=== PATIENT | female | born 1965 | race Caucasian/White ===

== ENCOUNTER → 2016-10-21 | Outpatient (CLI) | payer BC ==
--- NOTE | 2016-10-21 09:17 | REPMRS ---
Patient History Patient has history of cancer in the left breast at age 39, had previous chest radiation therapy at age 39, and had previous chemotherapy. Family history of prostate cancer in maternal grandfather at age 50 or over, unknown cancer in mother at age 69, and unknown cancer in maternal aunt at age 60. Chemotherapy. Radiation therapy of the left breast. Took hormonal contraceptives for 5 years. Digital Mammo Screening Bilat: October 21, 2016 - Exam #: [id number] Bilateral CC and MLO view(s) were taken. Technologist: Kim Casillas, Technologist Prior study comparison: October 20, 2015, bilateral digital mammo screening bilat performed at [facility]. October 18, 2014, digital mammo diagnostic bilateral performed at [facility]. November 05, 2013, bilateral bilat screen digital mammo, performed at [facility] ([facility]). FINDINGS: There are scattered fibroglandular densities. There has been no change in the appearance of the mammogram from the prior studies. There are stable post treatment changes in the left breast. There are needle biopsy marker clips in each breast as before. There is a mild amount of scattered fibroglandular density which is fairly symmetric. There is no interval development of dominant mass, architectural distortion, or clustered microcalcification suggestive of malignancy. ASSESSMENT: BI-RADS/ACR category 1 mammogram. Negative. Recommendation Routine screening mammogram in 1 year (for women over age 40). This mammogram was interpreted with the aid of an FDA-approved computer-aided dectection system. Electronically Signed By: Hayden Malin MD 10/21/16 0996
== END ==
LOC: M RAD 08:26
PROVIDERS: ATTEND Internal Medicine Medical Oncology
DX: Z08 Encounter for follow-up examination after completed treatment for malignant neoplasm (principal); Z12.31 Encounter for screening mammogram for malignant neoplasm of breast; Z85.3 Personal history of malignant neoplasm of breast

== ENCOUNTER → 2017-01-08 | Outpatient (CLI) | payer BC ==
--- NOTE | 2017-01-08 15:32 | REP ---
ULTRASOUND RIGHT BREAST: Clinical history: Left breast cancer with radiation and chemotherapy. Right breast swelling and tenderness diffusely, primarily 3-o'clock to 6-o'clock according to the patient. Correlation made with mammogram of 10/21/2016 bilaterally which was negative. Real-time sonographic evaluation of the right breast performed between 3-o'clock and 6-o'clock. No discrete cystic or solid nodule is seen. Dense fibroglandular tissue is seen. IMPRESSION: ACR 2 benign ultrasound right breast between 3-o'clock and 6-o'clock in the area of tenderness and swelling. Clinical correlation and followup recommended. A negative ultrasound should not deter biopsy if there is a clinically suspicious palpable mass present. Given the patient's history of breast cancer on the left I would recommend MRI of the breast to rule out an occult lesion. Signed by Kwame Castillo MD 01/09/2017 04:46 P
== END ==
LOC: M RAD 12:56
PROVIDERS: ATTEND Internal Medicine Medical Oncology
DX: N64.4 Mastodynia (principal); R22.2 Localized swelling, mass and lump, trunk; Z85.3 Personal history of malignant neoplasm of breast

== ENCOUNTER → 2017-03-11 | Outpatient (REF) | payer BC | LOC: M LAB REF 13:11 | PROVIDERS: ATTEND Internal Medicine Medical Oncology | DX: C50.919 Malignant neoplasm of unspecified site of unspecified female breast (principal) ==

== ENCOUNTER → 2017-04-17 | Outpatient (CLI) | payer BC ==
--- NOTE | 2017-04-18 08:11 | REP ---
Clinical: Chronic pain. Technique: AP, lateral, bilateral oblique views of the left foot. Findings: Mild age-related changes are appreciated. No acute or obvious healed fracture/dislocation. No significant, overt arthritic changes are identified. No significant periarticular or soft tissue calcifications. Impression: Relatively normal, age-appropriate left foot radiographs. Signed by Jaun Murillo MD 04/18/2017 03:13 A
== END ==
LOC: M WUC 17:02
PROVIDERS: ATTEND Physician Assistant
DX: M25.572 Pain in left ankle and joints of left foot (principal)

== ENCOUNTER → 2017-05-30 | Outpatient (CLI) | payer BC ==
--- NOTE | 2017-05-30 14:20 | REP ---
THREE-PHASE BONE SCANNING OF THE FEET AND ANKLES: History: Left foot fourth metatarsal stress fracture. Comparison radiographs May 12, 2017. Technique: 22.0 mCi technetium 99m MDP is injected and standard three-phase imaging was acquired. Scintigraphic findings: The anterior and posterior flow images demonstrate relative hyperemia of the left foot mild in degree. Blood pool images demonstrate an area of increased uptake in the left mid foot compared to the right. Delayed scan images demonstrate intensely increased uptake in the left mid foot at the level of the proximal third metatarsal or third metatarsal tarsal joint. No other focus of increased uptake is seen. Impression: Positive bone scan. Area of increased uptake on blood pool and delayed images in the left mid foot in the region of the third MTP joint or proximal metatarsal. This is compatible with stress fracture. Signed by Balwinder Malin MD 05/30/2017 03:03 P
== END ==
LOC: M RAD 09:00
PROVIDERS: ATTEND Podiatrist
DX: M84.375A Stress fracture, left foot, initial encounter for fracture (principal); X58.XXXA Exposure to other specified factors, initial encounter; Y92.89 Other specified places as the place of occurrence of the external cause; Y93.89 Activity, other specified; Y99.8 Other external cause status
CPT/HCPCS: 78315; A9503

== ENCOUNTER → 2017-10-26 | Outpatient (CLI) | payer BC | LOC: M LRY 10:53 | DX: M25.511 Pain in right shoulder (principal) | CPT/HCPCS: 73030 ==

== ENCOUNTER → 2017-11-19 | Outpatient (CLI) | payer BC ==
[~2017-11-19] MED LIST: GASTROGRAFIN SOLUTION 30ML (Q9963) As Ordered; ISOVUE-370 76% 100ML VIAL (Q9967) As Ordered
== END ==
LOC: M RAD 10:24
DX: K76.9 Liver disease, unspecified (principal); R10.31 Right lower quadrant pain
CPT/HCPCS: Q9963

== ENCOUNTER → 2017-11-19 | Outpatient (REF) | payer BC | LOC: M LAB REF 11:13 | DX: R10.31 Right lower quadrant pain (principal) | CPT/HCPCS: 87086 ==

== ENCOUNTER → 2017-11-19 | Outpatient (CLI) | payer BC ==
[2017-11-19 11:23] LABS: BASO # 0.1 10^3/uL (0.0-0.2); BASO % 1.1 % (0.0-1.0); EOS # 0.1 10^3/uL (0.0-0.50); EOS % 1.2 % (0.0-3.0); HEMATOCRIT 41.1 % (36.0-47.0); HEMOGLOBIN 13.2 g/dl (12.0-16.0); IMMATURE GRANULOCYTE % 0.9 % (0-3.0); LYMPH # 2.2 10^3/uL (1.5-4.5); LYMPH % 26.7 % (24.0-44.0); MEAN CORPUSCULAR HEMOGLOBIN 28.8 pg (27.0-33.0); MEAN CORPUSCULAR HGB CONC 32.1 g/dl (32.0-36.5); MEAN CORPUSCULAR VOLUME 89.5 fl (80.0-96.0); MONO # 0.5 10^3/uL (0.0-0.8); MONO % 6.6 % (0.0-5.0); NEUTROPHILS # 5.1 10^3/uL (1.8-7.7); NEUTROPHILS % 63.5 % (36.0-66.0); PLATELET COUNT, AUTOMATED 265 10^3/uL (150-450); RED BLOOD COUNT 4.59 10^6/uL (4.00-5.40)
[2017-11-19 11:40] LABS: ALBUMIN 4.1 GM/DL (3.2-5.2); ALBUMIN/GLOBULIN RATIO 1.17 (1.00-1.93); ALKALINE PHOSPHATASE 73 U/L (45-117); ALT/SGPT 38 U/L (12-78); ANION GAP 7 MEQ/L (8-16); AST/SGOT 21 U/L (7-37); BILIRUBIN,TOTAL 0.4 MG/DL (0.2-1.0); BLOOD UREA NITROGEN 11 MG/DL (7-18); CALCIUM LEVEL 9.8 MG/DL (8.5-10.1); CARBON DIOXIDE LEVEL 29 MEQ/L (21-32); CHLORIDE LEVEL 106 MEQ/L (98-107); CREATININE FOR GFR 0.56 MG/DL (0.55-1.30); GLOMERULAR FILTRATION RATE > 60.0 (>51); GLUCOSE, FASTING 83 MG/DL (70-100); POTASSIUM SERUM 4.2 MEQ/L (3.5-5.1); SODIUM LEVEL 142 MEQ/L (136-145); TOTAL PROTEIN 7.6 GM/DL (6.4-8.2)
== END ==
LOC: M WUC 09:42
DX: R10.31 Right lower quadrant pain (principal)
CPT/HCPCS: 80053

== ENCOUNTER → 2018-03-17 | Outpatient (CLI) | payer OTHER, BC ==
[~2018-03-17] MED LIST changes: -GASTROGRAFIN SOLUTION 30ML (Q9963) As Ordered; -ISOVUE-370 76% 100ML VIAL (Q9967) As Ordered; +PROHANCE 279.3MG/ML 15ML VIAL (A9576) As Ordered
== END ==
LOC: M RAD 12:05
DX: C34.90 Malignant neoplasm of unspecified part of unspecified bronchus or lung (principal)
CPT/HCPCS: A9576

== ENCOUNTER → 2018-10-01 | Outpatient (CLI) | payer OTHER ==
--- NOTE | 2018-10-01 15:44 | REP ---
Whole body radionuclide bone scan: History: Breast carcinoma. Hip pain. Question metastasis. Comparison study: October 11, 2014. Technique: 21.5 mCi technetium of 99m MDP is injected and standard whole body bone scan imaging is acquired. Findings: There is a normal distribution of skeletal tracer with uptake in bilateral kidneys and in the urinary bladder. There is arthritic uptake in the left mid foot and laterally in the left knee. There is a focus of slightly increased uptake in the left greater trochanter. This appears to be new, but may well be due to tendonitis or bursitis changes. No other abnormal focus of increased uptake is seen to suggest skeletal metastatic disease. Impression: New focus of increased uptake in the tip of the greater trochanter on the left side. This is nonspecific and may reflect tendonitis or bursitis. Otherwise negative bone scan. Electronically Signed by Balwinder Malin MD 10/01/2018 06:16 P
--- NOTE | 2018-10-01 16:32 | MEDONCTEEN ---
Date/Time of Encounter Date of Encounter: Oct 01, 2018 Time of Encounter: 16:29 Telephone Encounter Bone scan showed uptake in greater trochanter deemed possible bursitis/tendon itis. I suggested an Xray for this. FORREST GALE MD Oct 01, 2018 16:32
== END ==
LOC: M RAD 10:44
PROVIDERS: ATTEND Internal Medicine Medical Oncology
DX: M25.552 Pain in left hip (principal); Z85.3 Personal history of malignant neoplasm of breast
CPT/HCPCS: 78306; A9503

== ENCOUNTER → 2018-10-07 | Outpatient (CLI) | payer OTHER ==
--- NOTE | 2018-10-07 21:25 | REP ---
Clinical: Left hip and knee pain. Technique: AP and frog lateral views of the left femur. Findings: Femur is intact without acute fracture or dislocation. Hip and knee joints appear normal. Surrounding soft tissues are unremarkable. Impression: Normal left femur radiographs. Electronically Signed by Jaun Murillo MD 10/07/2018 09:15 P
--- NOTE | 2018-10-07 21:31 | REP ---
Clinical: Left hip pain. Technique: Neutral and frog lateral views of the left hip. Findings: Mild age-related changes are appreciated including subtle increase sclerosis to the acetabular roof. No obvious osteophytosis, significant joint space narrowing, or periarticular calcifications/loose bodies noted. Proximal femur appears normal and intact. Impression: Mild age-related changes. Electronically Signed by Jaun Murillo MD 10/07/2018 09:21 P
--- NOTE | 2018-10-07 21:33 | REP ---
Clinical: Right knee pain Technique: AP, lateral, bilateral oblique and sunrise views. Findings: The osseous structures and joint spaces are intact and normal. There is no evidence for acute fracture or dislocation. No joint effusion is appreciated. Surrounding soft tissues are unremarkable. No subcutaneous emphysema or radiodense foreign body. Impression: Age-appropriate right knee examination. Electronically Signed by Jaun Murillo MD 10/07/2018 09:24 P
== END ==
LOC: M RAD 12:12
PROVIDERS: ATTEND Internal Medicine Medical Oncology
DX: M25.552 Pain in left hip (principal); M25.561 Pain in right knee

== ENCOUNTER → 2019-07-20 | Outpatient (CLI) | payer OTHER ==
--- NOTE | 2019-07-20 15:57 | REPMRS ---
Patient History The patient states she had a clinical breast exam in 2018.Family history of unknown cancer at age 60 in maternal aunt, prostate cancer at age 50 or over in maternal grandfather, unknown cancer at age 69 in mother. Chemotherapy. Radiation therapy of the left breast. Took hormonal contraceptives for 5 years. Digital Mammo Screening Bilat: July 20, 2019 - Exam #: [id number] Bilateral CC and MLO view(s) were taken. Technologist: Tamia Garcia, Technologist Prior study comparison: March 17, 2018, bilateral digital mammo screening bilat performed at [facility]. October 21, 2016, bilateral digital mammo screening bilat performed at [facility]. October 20, 2015, bilateral digital mammo screening bilat performed at [facility]. FINDINGS: There are scattered fibroglandular densities. There are stable post-treatment changes again noted on the left. A needle biopsy marker clip is again noted in the left breast. There is also a needle biopsy marker clip again noted in the right breast. There has been no change in the appearance of the mammogram from the prior studies. There is a mild amount of scattered fibroglandular density which is fairly symmetric. There is no interval development of dominant mass, architectural distortion, or grouped microcalcification suggestive of malignancy. 3-D tomosynthesis shows no additional findings. Assessment: BI-RADS/ACR category 2 mammogram. Benign Findings. Recommendation Routine screening mammogram of both breasts in 1 year (for women over age 40). This mammogram was interpreted with the aid of an FDA-approved computer-aided dectection system. Electronically Signed By: Hayden Malin MD 07/20/19 0313
== END ==
LOC: M RAD 15:18
PROVIDERS: ATTEND Nurse Practitioner Family
DX: Z12.31 Encounter for screening mammogram for malignant neoplasm of breast (principal)

== ENCOUNTER → 2020-07-19 | Outpatient (CLI) | payer OTHER ==
--- NOTE | 2020-07-19 10:47 | REP ---
INDICATION: ABD BLOATING, ASCITES. COMPARISON: Comparison CT study November 19, 2017.. TECHNIQUE: Complete abdominal a scanning, transabdominal technique. FINDINGS: Scanning through the right upper quadrant of the abdomen demonstrates a normal sized and walled gallbladder without evidence of stone or polyp. Common bile duct is normal measuring 0.5 cm in greatest diameter. No focal liver lesion is seen. The prior CT study showed a hypervascular area 2 cm in diameter in the right lobe of the liver. No mass lesion is visible by ultrasound today. No pancreatic abnormality is observed. There is no evidence of ascites. Scanning in the left upper quadrant demonstrates a normal size homogeneous spleen measuring 9.5 centimeters in greatest diameter. Renal cortical echogenicity pattern is normal. There is no evidence hydronephrosis, mass or cyst. Right renal dimensions are 11.3 x 6.0 x 5.0 centimeters. The left kidney measures 12.9 x 5.6 x 5.3 centimeters. Normal caliber aorta is encountered. IMPRESSION: Negative complete abdominal sonography. No liver mass seen by ultrasound. <Electronically signed by Hayden Malin > 07/19/20 1041
== END ==
LOC: M RAD 07:54
PROVIDERS: ATTEND Internal Medicine Medical Oncology
DX: R14.0 Abdominal distension (gaseous) (principal); R18.8 Other ascites; Z85.3 Personal history of malignant neoplasm of breast

== ENCOUNTER → 2020-07-26 | Outpatient (CLI) | payer OTHER ==
--- NOTE | 2020-07-26 11:28 | REPMRS ---
Patient History The patient states she had a clinical breast exam in 08/04 Patient is postmenopausal, has history of cancer in the left breast at age 39, had previous chest radiation therapy at age 39, has history of cancer in the left breast at age 38, and had previous chemotherapy. Family history of unknown cancer at age 60 in maternal aunt, prostate cancer at age 50 or over in maternal grandfather, unknown cancer at age 69 in mother. Malignant excisional biopsy of the left breast, 2004. Chemotherapy. Radiation therapy of the left breast. Took hormonal contraceptives for 5 years. Digital Woman Screen Mammo: July 26, 2020 - Exam #: [id number] Bilateral CC and MLO view(s) were taken. Technologist: Mara Serna, Technologist Prior study comparison: July 20, 2019, bilateral digital mammo screening bilat, performed at [facility]. March 17, 2018, bilateral digital mammo screening bilat, performed at [facility]. October 21, 2016, bilateral digital mammo screening bilat, performed at [facility]. FINDINGS: There are scattered fibroglandular densities. The Volpara volumetric breast density category is:B. There is a needle biopsy marker clip in each breast. There are stable post treatment changes in the left breast. There has been no change in the appearance of the mammogram from the prior studies. There is a mild amount of scattered fibroglandular density which is fairly symmetric. There is no interval development of dominant mass, architectural distortion, or grouped microcalcification suggestive of malignancy. 3-D tomosynthesis shows no additional findings. Assessment: BI-RADS/ACR category 2 mammogram. Benign Findings. Recommendation Routine screening mammogram of both breasts in 1 year (for women over age 40). This mammogram was interpreted with the aid of an FDA-approved computer-aided dectection system. Electronically Signed By: Hayden Malin MD 07/26/20 1384
== END ==
LOC: M WHC 08:26
PROVIDERS: ATTEND Internal Medicine Medical Oncology
DX: Z12.31 Encounter for screening mammogram for malignant neoplasm of breast (principal)

== ENCOUNTER → 2021-09-03 | Outpatient (CLI) | payer OTHER | LOC: M WHC 08:56 | PROVIDERS: ATTEND Internal Medicine Medical Oncology | DX: Z12.31 Encounter for screening mammogram for malignant neoplasm of breast (principal) ==

== ENCOUNTER → 2022-09-05 | Outpatient (CLI) | payer OTHER | LOC: M WHC 13:13 | PROVIDERS: ATTEND Internal Medicine Medical Oncology | DX: Z12.31 Encounter for screening mammogram for malignant neoplasm of breast (principal) ==

== ENCOUNTER → 2023-04-25 | Outpatient (CLI) | payer OTHER ==
[2023-04-25 10:11] LABS: BASO # 0.1 10^3/uL (0.0-0.2); EOS # 0.2 10^3/uL (0.0-0.5); EOS % 2.6 % (0.0-3.0); HEMATOCRIT 42.5 % (36.0-47.0); HEMOGLOBIN 13.4 g/dl (12.0-15.5); LYMPH # 2.8 10^3/uL (1.5-5.0); LYMPH % 36.3 % (24.0-44.0); MEAN CORPUSCULAR HEMOGLOBIN 28.8 pg (27.0-33.0); MEAN CORPUSCULAR HGB CONC 31.5 g/dl (32.0-36.5); MEAN CORPUSCULAR VOLUME 91.4 fl (80.0-96.0); MONO # 0.6 10^3/uL (0.0-0.8); MONO % 7.2 % (2.0-8.0); NEUTROPHILS # 4.1 10^3/uL (1.5-8.5); NEUTROPHILS % 52.4 % (36.0-66.0); PLATELET COUNT, AUTOMATED 288 10^3/uL (150-450); RED BLOOD COUNT 4.65 10^6/uL (4.00-5.40); WHITE BLOOD COUNT 7.8 10^3/uL (4.0-10.0)
[2023-04-25 10:13] LABS: APPEARANCE, URINE HAZY (CLEAR); BACTERIA, URINE AUTO NEGATIVE (NEGATIVE); BILIRUBIN, URINE AUTO NEGATIVE (NEGATIVE); BLOOD, URINE BLOOD NEGATIVE (NEGATIVE); CALCIUM OXALATE CRYSTALS SMALL; COLOR, URINE YELLOW (YELLOW); GLUCOSE, URINE (UA) AUTO NEGATIVE (NEGATIVE); KETONE, URINE AUTO NEGATIVE (NEGATIVE); LEUKOCYTE ESTERASE, URINE AUTO TRACE (NEGATIVE); MUCUS, URINE SMALL (NEGATIVE); NITRITE, URINE AUTO NEGATIVE (NEGATIVE); PROTEIN, URINE AUTO NEGATIVE (NEGATIVE); RBC, URINE AUTO 2 /HPF (0-3); SPECIFIC GRAVITY URINE AUTO 1.019 (1.002-1.035); SQUAMOUS EPITHELIAL CELL UR AU 1 /HPF (0-6); UROBILINOGEN, URINE AUTO 0.2 mg/dL (0.0-2.0); WBC, URINE AUTO 1 /HPF (0-3)
[2023-04-25 10:46] LABS: ALBUMIN 4.1 G/DL (3.2-5.2); ALKALINE PHOSPHATASE 87 U/L (46-116); ALT/SGPT 44 U/L (7.0-40); AST/SGOT 20 U/L (<34); BILIRUBIN,TOTAL 0.3 MG/DL (0.3-1.2); BLOOD UREA NITROGEN 11 MG/DL (9-23); CALCIUM LEVEL 10.1 MG/DL (8.5-10.1); CARBON DIOXIDE LEVEL 27 MMOL/L (20-31); CHLORIDE LEVEL 106 MMOL/L (98-107); CHOLESTEROL LEVEL 255 MG/DL (<200); CHOLESTEROL RISK RATIO 5.61 (<5); CREATININE FOR GFR 0.56 MG/DL (0.55-1.30); GLOMERULAR FILTRATION RATE > 60.0 (>51); GLUCOSE, FASTING 97 MG/DL (60-100); HDL CHOLESTEROL 45.4 MG/DL (>40); LDL CHOLESTEROL 175.8 MG/DL (<100); NON-HDL-C 209.6 MG/DL; POTASSIUM SERUM 4.2 MMOL/L (3.5-5.1); SODIUM LEVEL 143 MMOL/L (136-145); THYROID STIMULATING HORMONE 5.103 uIU/ML (0.55-4.78); TOTAL 25(OH) VITAMIN D 33.1 NG/ML (20.0-100.0); TOTAL PROTEIN 7.6 G/DL (5.7-8.2); TRIGLYCERIDES LEVEL 169 MG/DL (<150)
== END ==
LOC: M WUC 08:08
PROVIDERS: ATTEND Physician Assistant
DX: Z00.00 Encounter for general adult medical examination without abnormal findings (principal)

== ENCOUNTER → 2023-05-20 | Outpatient (CLI) | payer OTHER ==
[2023-05-20 18:00] LABS: FREE T4 0.9 NG/DL (0.89-1.76); THYROID STIMULATING HORMONE 4.918 uIU/ML (0.55-4.78)
== END ==
LOC: M WUC 11:33
PROVIDERS: ATTEND Physician Assistant
DX: R79.89 Other specified abnormal findings of blood chemistry (principal)

== ENCOUNTER → 2023-05-21 | Outpatient (CLI) | payer OTHER | LOC: M WUC 15:22 | PROVIDERS: ATTEND Physician Assistant | DX: M25.532 Pain in left wrist (principal) ==

== ENCOUNTER → 2023-07-22 | Outpatient (CLI) | payer OTHER ==
[~2023-07-22] MED LIST changes: +AMLO1TAB25 PO; +LEVO25TA5 PO; -PROHANCE 279.3MG/ML 15ML VIAL (A9576) As Ordered; +ROSU5TAB5 PO
[2023-07-22 11:55] LABS: ALBUMIN 4.3 G/DL (3.2-5.2); ALKALINE PHOSPHATASE 74 U/L (46-116); ALT/SGPT 34 U/L (7.0-40); AST/SGOT 22 U/L (<34); BILIRUBIN,TOTAL 0.6 MG/DL (0.3-1.2); BLOOD UREA NITROGEN 13 MG/DL (9-23); CALCIUM LEVEL 9.8 MG/DL (8.5-10.1); CARBON DIOXIDE LEVEL 27 MMOL/L (20-31); CHLORIDE LEVEL 106 MMOL/L (98-107); CHOLESTEROL LEVEL 155 MG/DL (<200); CHOLESTEROL RISK RATIO 3.48 (<5); FREE T4 0.93 NG/DL (0.89-1.76); GLOMERULAR FILTRATION RATE > 60.0 (>51); GLUCOSE, FASTING 88 MG/DL (60-100); HDL CHOLESTEROL 44.5 MG/DL (>40); LDL CHOLESTEROL 90.9 MG/DL (<100); NON-HDL-C 110.5 MG/DL; POTASSIUM SERUM 4.1 MMOL/L (3.5-5.1); SODIUM LEVEL 141 MMOL/L (136-145); THYROID STIMULATING HORMONE 2.327 uIU/ML (0.55-4.78); TOTAL PROTEIN 7.5 G/DL (5.7-8.2); TRIGLYCERIDES LEVEL 98 MG/DL (<150)
== END ==
LOC: M WUC 08:39
PROVIDERS: ATTEND Physician Assistant
DX: E78.2 Mixed hyperlipidemia (principal)

== ENCOUNTER 2023-08-19 06:44 | Day surgery (SDC) | payer OTHER ==
[~2023-08-19] VITALS: Ht 157.5 cm; Wt 77.6 kg
[~2023-08-19 06:44] MED LIST changes: +NS 1,000 ML IV ONE; +VALS1TAB66 PO
[2023-08-19] MEDS ORDERED: propofoL 200 MG/20 ML VIAL As Ordered ONE ×2 (07:38→07:59)
[2023-08-19 08:28] VITALS: BP 126/69; O2SAT 97
== END 2023-08-19 08:33 | disposition home or self-care (01) ==
LOC: M OPP 06:44
PROVIDERS: ATTEND Internal Medicine Gastroenterology
DX: Z12.11 Encounter for screening for malignant neoplasm of colon (principal); D12.6 Benign neoplasm of colon, unspecified; K57.30 Diverticulosis of large intestine without perforation or abscess without bleeding; K64.4 Residual hemorrhoidal skin tags; K64.8 Other hemorrhoids; Z79.02 Long term (current) use of antithrombotics/antiplatelets; Z79.890 Hormone replacement therapy; Z79.899 Other long term (current) drug therapy

== ENCOUNTER → 2023-08-22 | Outpatient (CLI) | payer OTHER ==
[~2023-08-22] MED LIST changes: -NS 1,000 ML IV ONE
== END ==
LOC: M WHC 13:08
PROVIDERS: ATTEND Physician Assistant
DX: Z78.0 Asymptomatic menopausal state (principal)

== ENCOUNTER → 2023-09-16 | Outpatient (CLI) | payer OTHER ==
[2023-09-16 13:10] LABS: HEMATOCRIT 40.9 % (36.0-47.0); HEMOGLOBIN 13.3 g/dl (12.0-15.5); MEAN CORPUSCULAR HEMOGLOBIN 29.6 pg (27.0-33.0); MEAN CORPUSCULAR HGB CONC 32.5 g/dl (32.0-36.5); MEAN CORPUSCULAR VOLUME 90.9 fl (80.0-96.0); PLATELET COUNT, AUTOMATED 275 10^3/uL (150-450); WHITE BLOOD COUNT 7.6 10^3/uL (4.0-10.0)
[2023-09-16 13:36] LABS: C REACTIVE PROTEIN QUANTITATIV < 0.40 MG/DL (<1.0)
[2023-09-16 13:38] LABS: ERYTHROCYTE SEDIMENTATION RATE 31 mm/hr (0-30)
[2023-09-16 13:39] LABS: RHEUMATOID FACTOR QUANT < 3.5 IU/ML (<14)
== END ==
LOC: M WUC 10:39
PROVIDERS: ATTEND Podiatrist
DX: L84 Corns and callosities (principal)

== ENCOUNTER → 2023-09-22 | Outpatient (CLI) | payer OTHER | LOC: M WHC 09:53 | PROVIDERS: ATTEND Physician Assistant | DX: Z12.31 Encounter for screening mammogram for malignant neoplasm of breast (principal) ==

== ENCOUNTER → 2023-11-11 | Outpatient (CLI) | payer OTHER | LOC: M WUC 08:32 | PROVIDERS: ATTEND Physician Assistant | DX: R76.8 Other specified abnormal immunological findings in serum (principal); M25.50 Pain in unspecified joint ==

== ENCOUNTER → 2024-10-06 | Outpatient (CLI) | payer OTHER ==
[~2024-10-06] MED LIST changes: +MELO15TA28 PO; +ROSU5TAB49 PO; -ROSU5TAB5 PO
== END ==
LOC: M WHC 14:34
DX: Z12.31 Encounter for screening mammogram for malignant neoplasm of breast (principal); Z85.3 Personal history of malignant neoplasm of breast

== ENCOUNTER → 2024-10-22 | Outpatient (CLI) | payer OTHER ==
[2024-10-22 17:25] LABS: BASO # 0.1 10^3/uL (0.0-0.2); BASO % 1.3 % (0.0-1.0); EOS # 0.1 10^3/uL (0.0-0.5); EOS % 1.8 % (0.0-3.0); HEMOGLOBIN 13.2 g/dl (12.0-15.5); LYMPH % 28.3 % (24.0-44.0); MEAN CORPUSCULAR HGB CONC 31.4 g/dl (32.0-36.5); MEAN CORPUSCULAR VOLUME 92.3 fl (80.0-96.0); MONO # 0.5 10^3/uL (0.0-0.8); MONO % 6.3 % (2.0-8.0); NEUTROPHILS # 4.4 10^3/uL (1.5-8.5); NEUTROPHILS % 61.9 % (36.0-66.0); PLATELET COUNT, AUTOMATED 308 10^3/uL (150-450); RED BLOOD COUNT 4.55 10^6/uL (4.00-5.40); WHITE BLOOD COUNT 7.2 10^3/uL (4.0-10.0)
[2024-10-22 17:46] LABS: ALBUMIN 4.1 G/DL (3.2-5.2); ALKALINE PHOSPHATASE 70 U/L (35-104); ALT/SGPT 31 U/L (7.0-40); AST/SGOT 20 U/L (<34); BILIRUBIN,TOTAL 0.5 MG/DL (0.3-1.2); BLOOD UREA NITROGEN 17 MG/DL (9-23); CALCIUM LEVEL 10.1 MG/DL (8.5-10.1); CARBON DIOXIDE LEVEL 27 MMOL/L (20-31); CHLORIDE LEVEL 106 MMOL/L (98-107); CHOLESTEROL LEVEL 172 MG/DL (<200); CHOLESTEROL RISK RATIO 3.73 (<5); CREATININE FOR GFR 0.56 MG/DL (0.55-1.30); GLOMERULAR FILTRATION RATE > 60.0 (>51); GLUCOSE, FASTING 92 MG/DL (60-100); LDL CHOLESTEROL 100.8 MG/DL (<100); POTASSIUM SERUM 4.5 MMOL/L (3.5-5.1); RHEUMATOID FACTOR QUANT < 3.5 IU/ML (<14); SODIUM LEVEL 144 MMOL/L (136-145); THYROID STIMULATING HORMONE 2.602 uIU/ML (0.55-4.78); TOTAL 25(OH) VITAMIN D 30.3 NG/ML (20.0-100.0); TOTAL PROTEIN 7.4 G/DL (5.7-8.2); TRIGLYCERIDES LEVEL 126 MG/DL (<150)
[2024-10-22 17:47] LABS: FREE T4 1.02 NG/DL (0.89-1.76); THYROID PEROXIDASE ANTIBODY 227 U/ML (<60.0)
[2024-10-22 17:52] LABS: HEMOGLOBIN A1c 5.7 % (4.0-6.0)
[2024-10-25 16:42] LABS: ANA PATTERN Nuclear, Speckled (NEGATIVE); ANA PATTERN 2 Nuclear, Homogeneous; ANA SCREEN, IFA POSITIVE (NEGATIVE)
[2024-10-25 22:44] LABS: CYCLIC CITRULLINATED PEPTIDE < 16 UNITS (<20)
== END ==
LOC: M WUC 08:49
DX: M25.50 Pain in unspecified joint (principal); M32.9 Systemic lupus erythematosus, unspecified; E78.2 Mixed hyperlipidemia; I10 Essential (primary) hypertension; Z85.3 Personal history of malignant neoplasm of breast

== ENCOUNTER → 2024-10-22 | Outpatient (CLI) | payer OTHER ==
[2024-10-22 17:47] LABS: FREE T4 1.14 NG/DL (0.89-1.76)
[2024-10-22 17:48] LABS: CHOLESTEROL RISK RATIO 3.9 (<5); HDL CHOLESTEROL 45.8 MG/DL (>40); LDL CHOLESTEROL 107.6 MG/DL (<100); NON-HDL-C 133.2 MG/DL; THYROID STIMULATING HORMONE 2.524 uIU/ML (0.55-4.78)
== END ==
LOC: M WUC 08:47
PROVIDERS: ATTEND Physician Assistant
DX: E78.2 Mixed hyperlipidemia (principal); R00.2 Palpitations

== ENCOUNTER → 2025-01-13 | Outpatient (CLI) | payer OTHER | LOC: M CARPUL 14:35 | PROVIDERS: ATTEND Physician Assistant | DX: R06.02 Shortness of breath (principal) ==

== ENCOUNTER → 2025-05-18 | Outpatient (REF) | payer OTHER ==
[2025-05-18 19:14] LABS: ALT/SGPT 37 U/L (7.0-40); AST/SGOT 25 U/L (<34); CALCIUM LEVEL 10.3 MG/DL (8.5-10.1); CARBON DIOXIDE LEVEL 24 MMOL/L (20-31); CHLORIDE LEVEL 108 MMOL/L (98-107); CHOLESTEROL LEVEL 147 MG/DL (<200); CHOLESTEROL RISK RATIO 2.89 (<5); CREATININE FOR GFR 0.71 MG/DL (0.55-1.30); GLOMERULAR FILTRATION RATE > 90.0 (>51); LDL CHOLESTEROL 74.9 MG/DL (<100); NON-HDL-C 96.3 MG/DL; POTASSIUM SERUM 4.3 MMOL/L (3.5-5.1); SODIUM LEVEL 145 MMOL/L (136-145); TRIGLYCERIDES LEVEL 107 MG/DL (<150)
== END ==
LOC: M LAB REF 17:22
PROVIDERS: ATTEND Physician Assistant
DX: E78.2 Mixed hyperlipidemia (principal)

== ENCOUNTER → 2025-05-18 | Outpatient (REF) | payer OTHER ==
[2025-05-18 18:22] LABS: FREE T4 0.74 NG/DL (0.89-1.76)
[2025-05-18 18:45] LABS: ESTIMATED AVERAGE GLUCOSE 120.0 MG/DL (60-110)
== END ==
LOC: M SFHCLERA 08:40
DX: E06.3 Autoimmune thyroiditis (principal); R73.03 Prediabetes; E78.2 Mixed hyperlipidemia